=== PATIENT | male | born 1990 | race Caucasian/White ===

== ENCOUNTER → 2024-11-16 14:00 | Outpatient (BNVA) | payer BC, SELFPAY | PROVIDERS: PCP Nurse Practitioner Family; Visit Provider Nurse Practitioner Family | DX: I10 Essential (primary) hypertension (principal); Z13.6 Encounter for screening for cardiovascular disorders | CPT/HCPCS: 80053; 80061 ==

== ENCOUNTER 2025-08-24 13:43 | Emergency (ER) | payer BC, MEDICAID, SELFPAY ==
[2025-08-24 13:47] VITALS: BP 123/68; PULSE 65; RESP 18; TEMP 36.6; O2SAT 97; BMI 29.2
[2025-08-24 14:30] VITALS: BP 110/75; PULSE 65; O2SAT 96
[2025-08-24 14:34] LABS: Hematocrit 41.4 % (37-53); Hemoglobin 13.90 g/dL (11.27-16.99); Mean Corpuscular HGB Conc 33.6 g/dL (30-55); Mean Corpuscular Hemoglobin 29.2 pg (27-33); Mean Corpuscular Volume 87.0 fl (82-101); Nucleated Red Blood Cells % 0 %; Platelet Count 205 10^3/cmm (157-399); Red Blood Count 4.76 10^6/uL (3.85-5.65); White Blood Count 6.33 10^3/uL (3.29-11.43)
[2025-08-24 14:54] LABS: INR 0.87 (0.8-1.2); Prothrombin Time 12.50 SECONDS (12.1-14.9)
[2025-08-24 14:55] LABS: Partial Thromboplastin Time 28.8 SECONDS (23.9-36.7)
--- NOTE | 2025-08-24 14:55 | ED_ITS ---
HPI - GI Bleed 2 General: Chief complaint: GI Bleed Stated complaint: Blood in Stool Time Seen by Provider: 08/24/25 14:26 History of Present Illness: Patient is a pleasant 35-year-old gentleman without medical issues presents to the emergency room due to bright red blood per rectum. Family history of Crohn's disease, his mother. Patient stated he has had some blood in the stool, over the last 2 weeks, however he had a gross amount of bright red blood per rectum in the stool with his BM x 1 today. No other change in his BM. He has 1 stool/a day. This occurred just 1 hour prior to arrival. He does have a history of hemorrhoids, and has felt some sharp pains from time to time. He has never had a colonoscopy. He is unsure if he does want a colonoscopy. No lightheadedness, or dizziness. Patient does not typically drink alcohol, however he did have some alcohol last p.m. Associated symptoms: Denies abdominal pain, chills, fever(s), headache(s), nausea, rash or vomiting Related Data Previous Rx's ?Medication ?Instructions ?Recorded hydrocortisone 1 %-pramoxine 1 % 1 applic [place] BID PRN h emorrhoids 08/24/25 rectal foam (Proctofoam HC) #10 grams Allergies Allergy/AdvReac Type Severity Reaction Status Date / Time No Known Allergies Allergy Verified 11/07/24 15:18 Review of Systems 2 General: Reports: 10 or more systems reviewed and unremarkable except in HPI and below Const: Denies: fever(s), chills, body aches or change in appetite ENMT: Denies: throat pain or ear or mastoid pain Card: Denies: chest pain, palpitations, irregular heart rhythm, edema or swelling of feet/ankles Resp: Denies: dyspnea, productive cough or wheezing GI: Reports: change in bowel habits and hematochezia; Denies: abdominal pain, nausea, vomiting, diarrhea or constipation Musc: Denies: neck pain or back pain Skin/Breast: Denies: rash or pruritus Neuro: Denies: headache(s) or numbness in extremities PFSH ED 2 PFSH: Social History Smoking and tobacco/nicotine status: heavy tobacco/nicotine user Physical Exam 2 Const: COMMON NORMALS: no acute distress, patient oriented x3 and alert G ENERAL APPEARANCE: cooperative, comfortable and well kempt O RIENTATION/CONSCIOUSNESS: Yes oriented to person, Yes oriented to place and Yes oriented to time HENMT: COMMON NORMALS: normocephalic HEAD & SCALP: normocephalic Eye: COMMON NORMALS: Equal, round and reactive pupils present PUPIL: Yes Equal, round and reactive pupils present Neck/C-Spine: COMMON NORMALS: full ROM and no lymphadenopathy Resp: COMMON NORMALS: normal respiratory effort, No retractions, No use of accessory muscles and clear to auscultation bilaterally EFFORT & INSPECTION: Yes able to speak in complete sentences AUSCULTATION: clear to auscultation bilaterally Cardio: COMMON NORMALS: regular rate, regular rhythm, S1 normal heart sound present, S2 normal heart sound present, No gallops present (Cardio), No clicks present (Cardio), No murmurs present (Cardio) and No rub (Cardio) RATE: r egular rate RHYTHM: regular rhythm HEART SOUNDS: S1 normal heart sound present and S2 normal heart sound present GI: COMMON NORMALS: Normal to inspection, nondistended, normoactive bowel sounds present, Soft to palpation, non-tender and No hepatosplenomegaly present PALPATION: Yes Soft to palpation and Yes No hepatosplenomegaly present : COMMON NORMALS: Yes no CVA tenderness BLADDER/KIDNEY EXAM: Yes no CVA tenderness Back/Pelvis: COMMON NORMALS: no CVA tenderness Extremity: COMMON NORMALS: normal to inspection, full ROM and capillary refill normal Neuro: COMMON NORMALS: patient oriented x3 SENSORIUM/ORIENTATION: Yes alert, Yes oriented to person, Yes oriented to place and Yes oriented to time Psych: COMMON NORMALS: mental status grossly normal, Normal thought process present, normal affect and speech normal APPEARANCE: Yes grossly normal and Yes well kempt ATTITUDE: Yes calm ACTIVITY/MOTOR BEHAVIOR: Yes appropriate eye contact SPEECH: Yes normal speech THOUGHT PROCESS: Normal thought process present THOUGHT CONTENT: Yes Normal thought content present Skin: COMMON NORMALS: no rashes or lesions noted GENERAL SKIN EXAM: no rashes or lesions noted Course 2 Vital Signs: Vital signs: Vital Signs Temperature 97.8 F 08/24/25 13:47 Pulse Rate 66 08/24/25 15:13 Respiratory Rate 18 08/24/25 13:47 Blood Pressure 110/65 08/24/25 15:13 Pulse Oximetry 96 08/24/25 15:13 Oxygen Delivery Me thod Room Air 08/24/25 15:00 MDM - GI Bleed Medical Decision Making Patient is a 35-year-old gentleman without medical issues that presents to the emergency room with bright red blood per rectum. This has been worsening, and was severe today. Patient does have history of hemorrhoids. He also has this concern with his mom's history of Crohn's disease. He does not really want a colonoscopy at this juncture, however will think about this. I did send Proctofoam to the pharmacy to help with his hemorrhoids. He is to return if he has further issues. His blood counts are good at this time. He will be referred to primary care for possible stool cards and any concern for referral for colonoscopy. All of him and his fimaddie?audrey's questions answered to their satisfaction. Medical Records I reviewed the patient's medical records. Lab Data I reviewed the patient's lab results. 08/24/25 14:28 08/24/25 14:28 Laboratory Results WBC 6.33 10^3/uL (3.29-11.43) 08/24/25 14:28 RBC 4.76 10^6/uL (3.85-5.65) 08/24/25 14:28 Hgb 13.90 g/dL (11.27-16.99) 08/24/25 14:28 Hct 41.4 % (37-53) 08/24/25 14:28 MCV 87.0 fl (82-101) 08/24/25 14:28 MCH 29.2 pg (27-33) 08/24/25 14:28 MCHC 33.6 g/dL (30-55) 08/24/25 14:28 RDW 12.6 % (12.1-15.1) 08/24/25 14:28 Plt Count 205 10^3/cmm (157-399) 08/24/25 14:28 MPV 9.0 fL (7.4-10.4) 08/24/25 14:28 Neut % (Auto) 58.3 % 08/24/25 14:28 Lymph % (Auto) 27.0 % 08/24/25 14:28 Borden % (Auto) 11.8 % 08/24/25 14:28 Eos % (Auto) 2.1 % 08/24/25 14:28 Baso % (Auto) 0.5 % 08/24/25 14: Neut # (Auto) 3.69 10^3/uL (1.8-7.7) 08/24/25 14: Lymph # (Auto) 1.7 10^3/uL (0.8-4.8) 08/24/25 14:28 Borden # (Auto) 0.8 10^3/uL (0.2-0.9) 08/24/25 14: Eos # (Auto) 0.1 10^3/uL (0.0-0.8) 08/24/25 14: Baso # (Auto) 0.0 10^3/uL (0.0-0.1) 08/24/25 14: Nucleated RBC % (auto) 0 % 08/24/25 14: Nucleated RBCs # 0.0 /100WBC 08/24/25 14: PT 12.50 SECONDS (12.1-14.9) 08/24/25 14: INR 0.87 (0.8-1.2) 08/24/25 14: APTT 28.8 SECONDS (23.9-36.7) 08/24/25 14:28 Sodium 135 mmol/L (136-145) L 08/24/25 14: Potassium 4.6 mmol/L (3.5-5.1) 08/24/25 14: Chloride 98 mmol/L (98-107) 08/24/25 14: Carbon Dioxide 30 mmol/L (22-29) H 08/24/25 14:28 Anion Gap 11.6 (5-19) 08/24/25 14:28 BUN 18 mg/dL (6-20) 08/24/25 14:28 Creatinine 0.8 mg/dL (0.7-1.2) 08/24/25 14:28 GFR Calculation 111.3 mL/min (90-130) 08/24/25 14:28 Glucose 84 mg/dL (65-115) 08/24/25 14:28 Calculated Osmolality 281 mOsm/kg (285-295) L 08/24/25 14:28 Calcium 9.2 mg/dL (8.5-10.5) 08/24/25 14:28 Total Bilirubin 0.3 mg/dL (0.15-1.2) 08/24/25 14:28 AST 25 U/L (0-40) 08/24/25 14:28 ALT 20 U/L (0-41) 08/24/25 14:28 Alkaline Phosphatase 86 U/L (40-130) 08/24/25 14:28 Total Protein 6.6 g/dL (6.6-8.7) 08/24/25 14:28 Albumin 4.4 g/dL (3.5-5.2) 08/24/25 14:28 Globulin 2.2 g/dL (1.3-4.6) 08/24/25 14:28 No radiology studies performed this visit Discharge Plan Discharge Patient Disposition: Home Clinical Impression: Melena Hemorrhoids Qualifiers: Hemorrhoid type: unspecified Qualified Code(s): K64.9 - Unspecified hemorrhoids Condition: Stable Prescriptions: New Proctofoam HC 1-1 % foam 1 applic [place] BID PRN (Reason: hemorrhoids) Qty: 10 0RF Discharge Orders: Discharge ED (Routine); Ordered 08/24/25 Ordered By: Laury Jenkins Discharge Diet: Clear Liquid and Full LIquid Patient Instructions: Full Liquid Diet, Rectal Bleeding (ED), Clear Liquid Diet (ED), Patient Portal & Jacky Instructions Activity Restrictions/Additional Instructions: - At the pharmacy: Proctofoam HC: This is for your hemorrhoids. There will be an application to put it in on the inside for your internal hemorrhoids, and also on the external hemorrhoids. Places in your rectum daily after shower. As well, Vaseline to your rectum over your hemorrhoids on a daily basis after your shower is helpful. - We discussed: Primary care physician. Referral was made to case management. This will give you good follow-up on your labs, and the question of if you should have a colonoscopy. I am concerned you need a colonoscopy with given your bleeding, and your mom's history of chron's disease. This is something that would be scheduled on an outpatient basis as we discussed. -We discussed a clear liquid and full liquid diet until the symptoms subside. - When to return to the ED: Lightheaded, dizzy, temperature greater than 100.4 ?F, increasing bleeding. Thank you for choosing [facility] for your healthcare needs today. You have been screened and evaluated and felt safe for discharge. Health conditions do change or evolve sometimes and as such it is important that you follow up with your Primary Doctor to be re checked, 3-5 days is a general good time frame for follow up. You are always welcome to return to the ED for re assessment if your symptoms are worsening or you have new concerns Print Language: Tuvaluan Coding Level of Care Code ED Counselor Aid for Chadd Allison
[2025-08-24 14:59] LABS: Alanine Aminotransferase 20 U/L (0-41); Albumin Level 4.4 g/dL (3.5-5.2); Alkaline Phosphatase 86 U/L (40-130); Anion Gap 11.6 (5-19); Aspartate Amino Transferase 25 U/L (0-40); Blood Urea Nitrogen 18 mg/dL (6-20); Calcium 9.2 mg/dL (8.5-10.5); Carbon Dioxide 30 mmol/L (22-29); Chloride 98 mmol/L (98-107); Globulin 2.2 g/dL (1.3-4.6); Glucose 84 mg/dL (65-115); Osmolality Calculated 281 mOsm/kg (285-295); Potassium 4.6 mmol/L (3.5-5.1); Sodium 135 mmol/L (136-145); Total Protein 6.6 g/dL (6.6-8.7)
[2025-08-24 15:00] VITALS: BP 110/65; PULSE 64; O2SAT 95
[2025-08-24 15:13] VITALS: BP 110/65; PULSE 66; O2SAT 96
== END 2025-08-24 15:15 | disposition home or self-care (01) ==
PROVIDERS: Emergency Medicine; Emergency Provider Physician Assistant
DX: K92.1 Melena (principal); K64.9 Unspecified hemorrhoids; Z72.0 Tobacco use
CPT/HCPCS: 80053; 85025; 85610; 85730; 99283